=== PATIENT | male | born 1965 | race Asian ===

== ENCOUNTER 2021-09-23 05:49 | Day surgery (SDC) | payer OTHER ==
[~2021-09-23] VITALS: Ht 167.6 cm; Wt 65.0 kg
[2021-09-23] MEDS ORDERED: LIDOCAINE 2% 30 ML JELLY TP ONE (05:50)
[2021-09-23] MEDS ORDERED: LIDOCAINE 4% 50 ML SOLUTION TP ONE (05:50)
[2021-09-23] MEDS ORDERED: BENZOCAINE 20% 50 MCG/SPRAY 57 GM TP ONE (05:50)
[2021-09-23] MEDS ORDERED: SODIUM CHLORIDE 0.9% 1,000 ML IV ONE (06:30)
[2021-09-23 06:47] LABS: COVID AG,FIA SOURCE NASOPHARYNGEAL
[2021-09-23] MEDS ORDERED: SODIUM CHLORIDE 0.9% 1,000 ML ONE (06:49)
[2021-09-23] MEDS ORDERED: FentaNYL CITRATE PF 100 MCG/2 ML VIAL ONE (07:50)
[2021-09-23] MEDS ORDERED: MIDAZOLAM HCL 5 MG/ML VIAL ONE (07:51)
[2021-09-23] MEDS ORDERED: MethylPREDNISolone SOD SUCC 125 MG/2 ML VIAL IVP ONE (10:15)
[2021-09-23] MEDS ORDERED: MethylPREDNISolone SOD SUCC 125 MG/2 ML VIAL ONE (10:44)
[2021-09-23] MEDS ORDERED: OXYGEN THERAPY IH SCH (20:00)
== END 2021-09-23 12:15 | disposition home or self-care (01) ==
LOC: EDSEX 05:49 → SURGERY 05:49
PROVIDERS: ATTEND Internal Medicine Critical Care Medicine
DX: R05.3 Chronic cough (principal); R06.2 Wheezing; Z79.899 Other long term (current) drug therapy
CPT/HCPCS: 31623; 31624; 71045; 87015; 87070; 87101; 87206; 87220; 87426; 88112; 88312; C9803; J2250; J2930; J3010; J7030; Z7610